=== PATIENT | male | born 1955 | race Caucasian/White ===

== ENCOUNTER → 2020-03-04 | Outpatient (CLI) | payer OTHER ==
--- NOTE | 2020-03-04 11:23 | KCIC ---
LUMBAR SPINE WO CONTRAST Date: 03/04/2020 9:30 AM Indication: CHRONIC. LBP, chronic for yrs. DDD noted on a recent CT scan. Comparison: CT lumbar spine 12/30/2019. Technique: Multi-planar multi-weighted magnetic resonance imaging of the lumbar spine was performed without intravenous contrast using the standard lumbar spine protocol. FINDINGS: The lumbar spine is normally aligned. No acute fracture. Moderate multilevel degenerative disc desiccation and disc height loss. Scattered vertebral body hemangiomas. The conus terminates at a normal level. No abnormal signal is seen within the visualized distal spinal cord. No clumping of intrathecal nerve roots. No soft tissue abnormality in the visualized abdomen or pelvis. T12-L1: Disc bulge. Mild facet arthropathy. No significant spinal stenosis or neural foraminal narrowing. L1-L2: Disc bulge with annular tear. Mild facet arthropathy. Mild spinal stenosis. Mild bilateral neural foraminal narrowing. L2-L3: Disc bulge with annular tear. Mild facet arthropathy. Mild spinal stenosis. Mild to moderate right and mild left neural foraminal narrowing. L3-L4: Disc bulge with annular tear. Mild facet arthropathy. Mild spinal stenosis. Mild to moderate bilateral neural foraminal narrowing. L4-L5: Disc bulge with small inferiorly migrating central extrusion. Mild facet arthropathy. No significant spinal stenosis. Mild lateral recess narrowing. Mild to moderate bilateral neural foraminal narrowing. L5-S1: Disc bulge with bilateral far lateral protrusions which abut the exiting L5 nerve roots. Mild facet arthropathy. No significant spinal stenosis. Moderate right and severe left neural foraminal narrowing. IMPRESSION: Moderate to severe lumbar spondylosis, detailed level by level above. Electronically signed by: Jose Daniel Leong MD (03/04/2020 11:20 AM) [id number]
== END ==
LOC: KCIC MRI 08:44
PROVIDERS: ATTEND Family Medicine
DX: M47.817 Spondylosis without myelopathy or radiculopathy, lumbosacral region (principal); M48.061 Spinal stenosis, lumbar region without neurogenic claudication
CPT/HCPCS: 72148